=== PATIENT | male | born 1960 | race African-American/Black ===

== ENCOUNTER 2017-06-05 16:12 | Emergency (ER) | payer OTHER ==
[2017-06-05 16:22] VITALS: BP 144/81; PULSE 84; TEMP 98.2; BMI 48.0
--- NOTE | 2017-06-05 16:22 | PDOC ---
Rapid Medical Evaluation Time Seen by Provider: 06/05/17 16:18 Medical Evaluation: Allergies Allergy/AdvReac Type Severity Reaction Status Date / Time No Known Allergies Allergy Verified 06/05/17 16:18 06/05/17 16:18 The patient presents with a chief complaint of: Fall in the bathtub on Monday. "Legs gave out" Legs hurt b/l from knees up.Hx of sleep apnea. Fell asleep in shower? No LOC, did not hit head, no dizziness, or light headedness I have performed a brief in-person evaluation of this patient; Pertinent physical exam findings: TTP knees and quads b/l I have ordered the following: nothing The patient will proceed to the ED for further evaluation.
--- NOTE | 2017-06-05 17:44 | PDOC ---
History of Present Illness - General Chief Complaint: Injury Stated Complaint: FALL/INJURY Time Seen by Provider: 06/05/17 16:18 History Source: Patient Exam Limitations: No Limitations - History of Present Illness Initial Comments: 06/05/17 18:03 MY CHIEF COMPLAINT:"I WANT MY MRI OF MY LEGS" HISTORY OF PRESENT ILLNESS: PT. IS A 57 y/o male with h/o diabetes here today c/ o pain b/l knees, thighs since yesterday after falling in the shower. Pt. initially upon entry to exam room stated "I want an MRI my knees". It was explained to patient that he would not be able to get an MRI of his knees in the emergency room. Patient according to medical records had a prescription from Dr. Quintero to have bilateral leg x-rays. Patient explained that he had gone to out patient registration but was unable to register "because they are idiots, now I had to come here" . Pt. reported falling in the bathtub yesterday unto his knees and now has pain b/l medial knees and anterior thighs. Pt. refused to put on a gown, stating " I will drop my pants once I get to the xray room". Pt. raising his voice when spoken to, pt. stated, "they sent me here now to see a nurse". Veterinary Technician Assistant offered that he could see a MD in the back, pt.did not state he wanted to, "I just want my xrays" in a loud demanding voice. Pt. denies any other injuries, denies hitting his head. 06/05/17 18:08 06/05/17 18:42 Occurred: reports: yesterday Severity: Yes: moderate Lower Extremity Pain Location: bilateral: knee, leg (thighs) Method of Injury: Yes: fell Modifying Factors: improves with: None Lower Ext. Injury Location - Specific Injury Location Legs: bilateral: normal inspection, normal range of motion, bone tenderness ( medial knees ), soft tissue tenderness (b/l thighs ), pain (medial knees b/l ) Knees: bilateral no evidence of injury, bilateral normal range of motion, bilateral normal inspection, bilateral bone tenderness (medial knees ) Extremity Pain Location - Extremity Pain Location Extremity Pain Locations: bilateral: knee (medial knees ) Past History - Past Medical History Allergies/Adverse Reactions: Allergies Allergy/AdvReac Type Severity Reaction Status Date / Time No Known Allergies Allergy Verified 06/05/17 16:18 Home Medications: Ambulatory Orders Cephalexin [Keflex] 500 mg PO QID #30 capsule 02/09/16 Hydrocortisone 0.5% Cream [Hytone 0.5% Cream -] 1 applic TP BID #1 tube Ibuprofen [Motrin -] 600 mg PO QID PRN #30 tablet 02/09/16 Polymyxin B Sulfate/Tmp [Polytrim Opthalmic Solution -] 2 drop OU Q6H 7 Days drops 02/09/16 COPD: No Diabetes: Yes (non compliant) - Immunization History Immunization Up to Date: Yes - Suicide/Smoking/Psychosocial Hx Smoking History: Never smoked Have you smoked in the past 12 months: Yes Number of Cigarettes Smoked Daily: 10 Information on smoking cessation initiated: Yes 'Breaking Loose' booklet given: 06/05/17 Hx Alcohol Use: No Drug/Substance Use Hx: No Substance Use Type: None Hx Substance Use Treatment: No Review of Systems - Review of Systems Able to Perform ROS?: Yes Constitutional: No: Symptoms Reported HEENTM: No: Symptoms Reported Respiratory: No: Symptoms reported Cardiac (ROS): No: Symptoms Reported ABD/GI: No: Symptoms Reported : No: Symptoms Reported Musculoskeletal: Yes: Joint Pain (medial knees b/l ), Muscle Pain (b/l anterior thighs ). No: Joint Swelling Integumentary: No: Symptoms Reported Neurological: No: Symptoms reported *Physical Exam - Vital Signs Last Vital Signs Temp Pulse Resp BP Pulse Ox 98.2 F 84 18 144/81 100 06/05/17 16:19 06/05/17 16:19 06/05/17 16:19 06/05/17 16:19 06/05/17 16:19 - Physical Exam General Appearance: Yes: Appropriately Dressed Vascular Pulses: Dorsalis-Pedis (R): 4+, Doralis-Pedis (L): 4+ Musculoskeletal: positive: Normal Inspection. negative: Vertebral Tenderness Extremity: positive: Normal Capillary Refill, Normal Inspection, Normal Range of Motion (b/l knees, ), Tender (b/l medial knee ), Other (muscle tenderness b/ l anterior thighs ) Integumentary: positive: Normal Color (b/l ) Neurologic: positive: Alert, Normal Response, Motor Strength 5/5 (b/l lower extremities ), Responsive. negative: Respond to painful stimul, Numbness, Sensory Deficit Deep Tendon Reflexes: Knee (L): 3+, Knee (R): 3+ Medical Decision Making - Medical Decision Making 06/05/17 18:49 PT. IS A 57 y/o male with h/o diabetes here today c/o pain b/l knees, thighs since yesterday after falling in the shower. Pt. initially upon entry to exam room stated "I want an MRI my knees". It was explained to patient that he would not be able to get an MRI of his knees in the emergency room. Patient according to medical records had a prescription from Dr. Quintero to have bilateral leg x- rays. Patient explained that he had gone to out patient registration but was unable to register "because they are idiots, now I had to come here" . Pt. reported falling in the bathtub yesterday unto his knees and now has pain b/l medial knees and anterior thighs. Pt. refused to put on a gown, stating " I will drop my pants once I get to the xray room". Pt. raising his voice when spoken to, pt. stated, "they sent me here now to see a nurse". Veterinary Technician Assistant offered that he could see a MD in the back, pt.did not state he wanted to, "I just want my xrays" in a loud demanding voice. Pt. denies any other injuries, denies hitting his head. fall b/l knee pain r/o iliana abnormality b/l thigh pain r/o iliana abnormality PLAN: xray b/l femur DEGENERATIVE ARTHRITIS WITH NO FRACTURE OR ACUTE BONE OR JOINT ABNORMALITIES PER DR. EDWARDS XRAY TIBIA/FIBIA B/L DEGENERATIVE ARTHRITIS WITH NO FRACTURE OR ACUTE BONE OR JOINT ABNORMALITIES PER DR. EDWARDS xray b/l knees DEGENERATIVE ARTHRITIS WITH NO FRACTURE OR ACUTE BONE OR JOINT ABNORMALITIES PER DR. EDWARDS ORTHO CONSULT 06/05/17 20:14 06/05/17 20:16 *DC/Admit/Observation/Transfer Diagnosis at time of Disposition: Pain in both thighs Fall Qualifiers: Encounter type: initial encounter Qualified Code(s): W19.XXXA - Unspecified fall, initial encounter Knee pain, bilateral Qualifiers: Chronicity: unspecified Qualified Code(s): M25.561 - Pain in right knee - Discharge Dispostion Disposition: ELOPED - Referrals - Patient Instructions Additional Instructions: FOLLOW UP WITH ORTHOPEDIST SOON POSSIBLE FOR FURTHER RETURN TO EMERGENCY ROOM IF SYMPTOMS WORSEN OR NEW SYMPTOMS WORSEN TAKE IBUPROFEN OR ALEVE OR ADVIL NEEDED FOR PAIN AVOID ANY STRENUOUS ACTIVITIES OR EXERCISE - Post Discharge Activity
== END 2017-06-05 21:25 | disposition left against medical advice (07) ==
LOC: JERFT 16:12
DX: M79.652 Pain in left thigh (principal); M79.651 Pain in right thigh; M25.561 Pain in right knee; F17.210 Nicotine dependence, cigarettes, uncomplicated
CPT/HCPCS: 73552-TC-LT; 73552-TC-RT; 73562-TC-LT; 73562-TC-RT; 73590-TC-LT; 73590-TC-RT; 99281-25

== ENCOUNTER 2018-08-12 20:29 | Observation (INO) | payer OTHER ==
[2018-08-12 20:36] VITALS: BMI 48.0
--- NOTE | 2018-08-12 20:58 | PDOC ---
History of Present Illness - General Chief Complaint: Chest Pain Stated Complaint: CHEST PAIN - History of Present Illness Initial Comments: 08/12/18 20:55 58 yo male with NIDDM presented earlier today with complaint of chest pain for 3 days which is present at rest and on exertion. Pt was placed into tele obs for ACS rule out with a heart score of 4-5 and planned for cardiology evaluation in the AM. Pt left the premisis AMA however returned stating that his daughter had convinced him to stay. Past History - Past Medical History Allergies/Adverse Reactions: Allergies Allergy/AdvReac Type Severity Reaction Status Date / Time almond Allergy Severe ANAPHYLAXIS,THROAT Verified 08/12/18 20:36 CLOSING walnut Allergy Severe ANAPHYLAXIS, Verified 08/12/18 20:36 THROAT CLOSING certain nuts Allergy Uncoded 08/12/18 20:36 COPD: No Diabetes: Yes - Immunization History Immunization Up to Date: Yes - Suicide/Smoking/Psychosocial Hx Smoking History: Never smoked Have you smoked in the past 12 months: No Number of Cigarettes Smoked Daily: 10 Information on smoking cessation initiated: No 'Breaking Loose' booklet given: 06/05/17 Hx Alcohol Use: No Drug/Substance Use Hx: No Substance Use Type: None Hx Substance Use Treatment: No Review of Systems - Review of Systems Constitutional: No: Chills, Fever HEENTM: No: Blurred Vision Respiratory: Yes: SOB with Exertion. No: Cough Cardiac (ROS): Yes: Chest Pain. No: Irregular Heart Rate, Syncope ABD/GI: No: Abdominal Distended, Constipated, Diarrhea, Nausea : No: Dysuria, Discharge Musculoskeletal: Yes: Back Pain *Physical Exam - Vital Signs Last Vital Signs Temp Pulse Resp BP Pulse Ox 98.0 F 84 16 141/91 100 08/12/18 20:35 08/12/18 20:35 08/12/18 20:35 08/12/18 20:35 08/12/18 20:35 - Physical Exam Comments: 08/12/18 20:59 GEN: Obese male in no acute distress HEENT: PERRL, no pharyngeal erythema or exudate NECK: supple, no lymphadenopathy HEART: RRR, no murmurs or rubs LUNGS: CTA b/l, no wheezes or rhales ABDOMEN: Soft, nontender, obese, normoactive bowel sounds EXTREMITIES: nontender to palpation, no calf tenderness on palpation Moderate Sedation - Procedure Monitoring Vital Signs: Procedure Monitoring Vital Signs Temperature 98.0 F 08/12/18 20:35 Pulse Rate 84 08/12/18 20:35 Respiratory Rate 16 08/12/18 20:35 Blood Pressure 141/91 08/12/18 20:35 O2 Sat by Pulse Oximetry (%) 100 08/12/18 20:35 Medical Decision Making - Medical Decision Making 08/12/18 20:59 repeat troponin Negative. Still feel pt needs cardiac monitoring overnight and cardiology evaluation in the AM. Will microblog hospitalist who covers for Dr. Orta at this time and discuss for tele obs similar to earlier. *DC/Admit/Observation/Transfer Diagnosis at time of Disposition: Chest pain at rest - Discharge Dispostion Condition at time of disposition: Stable Decision to Admit order: Yes - Referrals - Patient Instructions - Post Discharge Activity
--- NOTE | 2018-08-12 21:09 | PDOC ---
*Physical Exam - Vital Signs Last Vital Signs Temp Pulse Resp BP Pulse Ox 98.0 F 84 16 141/91 100 08/12/18 20:35 08/12/18 20:35 08/12/18 20:35 08/12/18 20:35 08/12/18 20:35 Medical Decision Making - Medical Decision Making 08/12/18 21:08 Patient was admitted to the hospital earlier today for chest pain rule out then decided to leave AMA moments after leaving AMA return to the hospital but patient had been department from the system no new complaints he simply is changed his mind and has decided to stay. We will proceed with his admission to the hospital *DC/Admit/Observation/Transfer Diagnosis at time of Disposition: Chest pain at rest - Discharge Dispostion Condition at time of disposition: Stable Decision to Admit order: Yes - Referrals - Patient Instructions - Post Discharge Activity
--- NOTE | 2018-08-12 21:24 | HP ---
Admitting History and Physical - Primary Care Physician PCP: George Arcos - Admission Chief Complaint: Chest Pain History of Present Illness: This is a 58 y/o man with a past medical history of Diabetes (non compliant). Who presents again to the ED for chest pain. Patient was seen and admitted this afternoon for chest pain, but AMA. He returned after speaking with his daughter. Patient reports having mid sternal CP which radiated to his back, IBARRA x 2 days. Patient denies diaphoresis, palpitations. Patient denies fever, chills , cough, N/V/D, constipation, dysuria. ER course was notable for: (1) Troponin I 0.03 (2) EKG- NSR 69bpm cannot r/o anterior infarct age undetermined (3) Chest Xray- cardiomegaly, no acute chest pathology History Source: Patient Limitations to Obtaining History: No Limitations - Past Medical History Pulmonary: Yes: Asthma, Sleep Apnea Endocrine: Yes: Diabetes Mellitus - Smoking History Smoking history: Current every day smoker Have you smoked in the past 12 months: Yes Aproximately how many cigarettes per day: 10 (1Pack/1.5 days) - Alcohol/Substance Use Hx Alcohol Use: Yes Number of Drinks Daily: 1 (Beer- Occasional) History of Substance Use: reports: None - Social History Usual Living Arrangement: Yes: Alone ADL: Independent Occupation: Disabled- not working History of Recent Travel: No Home Medications - Allergies Allergies/Adverse Reactions: Allergies Allergy/AdvReac Type Severity Reaction Status Date / Time almond Allergy Severe ANAPHYLAXIS,THROAT Verified 08/12/18 20:36 CLOSING walnut Allergy Severe ANAPHYLAXIS, Verified 08/12/18 20:36 THROAT CLOSING certain nuts Allergy Uncoded 08/12/18 20:36 Family Disease History - Family Disease History Family Disease History: Other: Father (), Mother (), Brother ( ESRD) Review of Systems - Review of Systems Constitutional: reports: No Symptoms Eyes: reports: No Symptoms HENT: reports: No Symptoms Neck: reports: No Symptoms Cardiovascular: reports: Chest Pain Respiratory: reports: SOB, SOB on Exertion Gastrointestinal: reports: No Symptoms Genitourinary: reports: No Symptoms Breasts: reports: No Symptoms Reported Musculoskeletal: reports: Back Pain Integumentary: reports: No Symptoms Neurological: reports: No Symptoms Endocrine: reports: No Symptoms Hematology/Lymphatic: reports: No Symptoms Psychiatric: reports: No Symptoms Physical Examination Vital Signs: Vital Signs Temperature 98.0 F 08/12/18 20:35 Pulse Rate 84 08/12/18 20:35 Respiratory Rate 16 08/12/18 20:35 Blood Pressure 141/91 08/12/18 20:35 O2 Sat by Pulse Oximetry (%) 100 08/12/18 20:35 Constitutional: Yes: Well Nourished, No Distress, Calm Eyes: Yes: WNL, Conjunctiva Clear, EOM Intact, PERRL HENT: Yes: WNL, Atraumatic, Normocephalic Neck: Yes: WNL, Supple, Trachea Midline Cardiovascular: Yes: WNL, Regular Rate and Rhythm, S1, S2 Respiratory: Yes: WNL, Regular, CTA Bilaterally Gastrointestinal: Yes: WNL, Normal Bowel Sounds, Soft, Abdomen, Obese ...Rectal Exam: Yes: Deferred Renal/: Yes: WNL Breast(s): Yes: WNL Musculoskeletal: Yes: WNL Extremities: Yes: WNL Edema: No Peripheral Pulses WNL: Yes Neurological: Yes: WNL, Alert, Oriented, Cran Nerves II-XII Intact ...Motor Strength: WNL Psychiatric: Yes: WNL, Alert, Oriented Labs: Laboratory Results - last 24 hr 08/12/18 22:03 POC Glucometer 207 Current Medications Generic Name Dose Route Start Last Admin Trade Name Freq PRN Reason Stop Dose Admin Albuterol Sulfate 2 puff 08/12/18 23:08 Ventolin Hfa Inhaler - IH Q6H PRN SHORT OF BREATH/WHEEZING Aspirin 81 mg 08/13/18 10:00 Asa - PO DAILY [facility] Insulin Aspart 1 vial 08/12/18 22:00 08/12/18 22:05 Novolog Vial Sliding Scale - SQ Not Given ACHS [facility] Protocol Intake & Output 08/09/18 08/10/18 08/11/18 08/12/18 23:59 23:59 23:59 23:59 Weight 127.006 kg Imaging - Results Chest X-ray: Report Reviewed, Image Reviewed EKG: Image Reviewed Problem List - Problems (1) Chest pain at rest Assessment/Plan: r/o ACS HEART Score 5 Continue cardiac technician Appreciate Cardiology consult Serial Enzymes Asa Echo in am HgbA1c, Lipid Panel, CBC, BMP in am Code(s): R07.9 - CHEST PAIN, UNSPECIFIED (2) Diabetes mellitus Assessment/Plan: not well controlled Likely secondary to non-compliance BGMs ISS Appreciate Cardiology consult Monitor renal function HgbA1c in am RD consult Code(s): E11.9 - TYPE 2 DIABETES MELLITUS WITHOUT COMPLICATIONS (3) Asthma Assessment/Plan: stable No acute flare Albuterol MDI prn Peak flow f/u with Pulmonology outpatient Code(s): J45.909 - UNSPECIFIED ASTHMA, UNCOMPLICATED (4) Sleep apnea in adult Assessment/Plan: Non-complaint with CPAP use Counseled patient on benefits and dangers of not using CPAP machine, patient is not amendable O2 Code(s): G47.30 - SLEEP APNEA, UNSPECIFIED (5) Tobacco dependence due to cigarettes Assessment/Plan: Patient counseled on smoking cessation, he is not amendable Nicoderm patch offered, patient declined Code(s): F17.210 - NICOTINE DEPENDENCE, CIGARETTES, UNCOMPLICATED Assessment/Plan This is a 58 y/o man PMHx of Diabetes. Placed on Tele Observation for Chest Pain r/o ACS for further evaluation of their emergent medical condition. Plan: See Problem List FEN PO fluids as tolerated Replete lytes prn Low Na Diabetic Diet DVT ppx OOB SCDs Dispo: Observation Visit type - Emergency Visit Emergency Visit: Yes ED Registration Date: 08/12/18 Care time: The patient presented to the Emergency Department on the above date and was hospitalized for further evaluation of their emergent condition. - New Patient This patient is new to me today: Yes Date on this admission: 08/12/18 - Critical Care Critical Care patient: No
[2018-08-12] MEDS: INSULIN SLIDING SCALE (NOVOLOG) 1 VIAL SQ SCH (22:05)
[2018-08-12] MEDS ORDERED: ALBUTEROL SO4 8 GM HFA INHALER IH PRN (23:08)
[2018-08-13 07:22] LABS: BASO % 0.7 % (0-2.0); EOS % 3.5 % (0-4.5); HEMATOCRIT 43.9 % (35.4-49); HEMOGLOBIN 15.1 GM/dL (11.7-16.9); LYMPH % 39.2 % (8-40); MCH 29.2 pg (25.7-33.7); MCHC 34.4 g/dl (32.0-35.9); MEAN CELL VOLUME 85.1 fl (80-96); MEAN PLT VOLUME 8.9 fl (7.5-11.1); MONO % 9.1 % (3.8-10.2); NEUT % 47.5 % (42.8-82.8); PLATELET COUNT 188 K/MM3 (134-434); RBC 5.16 M/mm3 (4.00-5.60); RDW 15.7 % (11.9-15.9); WHITE BLOOD COUNT 5.3 K/mm3 (4.0-10.0)
[2018-08-13] MEDS: INSULIN SLIDING SCALE (NOVOLOG) 1 VIAL SQ SCH ×3 (07:40→14:58)
[2018-08-13] MEDS ORDERED: ASPIRIN 81 MG CHEWABLE TABLETS ONE (09:58)
[2018-08-13] MEDS ORDERED: ASPIRIN 81 MG CHEWABLE TABLETS PO SCH (10:00)
[2018-08-13 13:32] LABS: ANION GAP 6 MMOL/L (8-16); BLOOD UREA NITROGEN 14 mg/dL (7-18); CALCIUM 8.5 mg/dL (8.5-10.1); CHLORIDE 106 mmol/L (98-107); CHOLESTEROL 190 mg/dL (50-200); CO2 29 mmol/L (21-32); CREATININE 0.9 mg/dL (0.55-1.3); GLUCOSE,RANDOM 146 mg/dL (74-106); HDL CHOLESTEROL 46 mg/dL (40-60); N-TERMINAL BNP 21.6 pg/ml (5-125); SODIUM 141 mmol/L (136-145); TRIGLYCERIDES 201 mg/dL (0-150)
--- NOTE | 2018-08-13 16:28 | PN ---
Progress Note, Physician Chief Complaint: patient seen earlier today came in for chest pain awaiting echo and cardiology to see patient really wants to go home - Current Medication List Current Medications: Active Medications Albuterol Sulfate (Ventolin Hfa Inhaler -) 2 puff IH Q6H PRN PRN Reason: SHORT OF BREATH/WHEEZING Aspirin (Asa -) 81 mg PO DAILY RONDA Insulin Aspart (Novolog Vial Sliding Scale -) 1 vial SQ ACHS RONDA; Protocol Last Admin: 08/13/18 07:40 Dose: Not Given - Objective Vital Signs: Vital Signs Temperature 98.0 F 08/12/18 20:35 Pulse Rate 63 08/13/18 06:50 Respiratory Rate 18 08/13/18 06:50 Blood Pressure 127/93 08/13/18 06:50 O2 Sat by Pulse Oximetry (%) 96 08/13/18 06:50 Constitutional: Yes: Calm Cardiovascular: Yes: Regular Rate and Rhythm, S1, S2 Respiratory: Yes: CTA Bilaterally Gastrointestinal: Yes: Normal Bowel Sounds, Soft Edema: No Neurological: Yes: Alert, Oriented Labs: CBC, BMP 08/13/18 06:14 08/13/18 06:14 Problem List - Problems (1) Chest pain at rest Assessment/Plan: ce 1 sets negative echo normal aspirin lipitor given lipid panel noted Code(s): R07.9 - CHEST PAIN, UNSPECIFIED (2) Diabetes mellitus Assessment/Plan: metfromin and januvia Code(s): E11.9 - TYPE 2 DIABETES MELLITUS WITHOUT COMPLICATIONS Qualifiers: Diabetes mellitus type: type 2
--- NOTE | 2018-08-13 16:35 | ECHO ---
Name: LAURIE DOUGLAS Exam:Adult Echocardiogram Study Date: 08/13/2018 04:02 PM Age: 58 yrs Reason For Study: WALL MOTION ABNORMALITIES Height: 64 in Weight: 285 lb BSA: 2.3 m2 MMode/2D Measurements & Calculations IVSd: 0.79 cm Ao root diam: 3.3 cm LVIDd: 4.8 cm LA dimension: 3.8 cm LVIDs: 3.1 cm LVPWd: 0.76 cm EDV(Teich): 109.3 ml ESV(Teich): 36.7 ml Doppler Measurements & Calculations MV E max manjit: 92.1 cm/sec Ao V2 max: 169.7 cm/sec MV A max manjit: 64.2 cm/sec Ao max P.5 mmHg MV E/A: 1.4 MV dec time: 0.23 sec LV V1 max P.4 mmHg Med Peak E' Manjit: 10.7 cm/sec LV V1 max: 91.5 cm/sec Med E/e': 8.6 Lat Peak E' Manjit: 13.8 cm/sec Lat E/e': 6.7 Procedure A complete two-dimensional transthoracic echocardiogram was performed (2D, M-mode, Doppler and color flow Doppler). Left Ventricle The left ventricle is normal in size. Left ventricular systolic function is normal. Ejection Fraction = 60- 65%. No regional wall motion abnormalities noted. Right Ventricle The right ventricle is normal size. The right ventricular systolic function is normal. Atria The left atrial size is normal. Right atrial size is normal. Mitral Valve There is mild mitral annular calcification. There is no mitral regurgitation noted. Tricuspid Valve The tricuspid valve is normal in structure and function. No tricuspid regurgitation. Aortic Valve The aortic valve is normal in structure and function. No aortic regurgitation is present. Pulmonic Valve The pulmonic valve is not well visualized. Great Vessels The aortic root is normal size. Pericardium/Pleura There is no pericardial effusion. Interpretation Summary The left ventricle is normal in size. Left ventricular systolic function is normal. No regional wall motion abnormalities noted. Ejection Fraction = 60-65%. The right ventricular systolic function is normal. The left atrial size is normal. Right atrial size is normal. There is mild mitral annular calcification. No significant valvular regurgitations There is no pericardial effusion. Previous study is not available for comparison Guillaume Quiroz MD 08/13/2018 04:34 PM
[2018-08-13 17:53] VITALS: BP 128/86; PULSE 66; TEMP 98.3
[2018-08-13] MEDS ORDERED: ATORVASTATIN CA 10 MG TABLET (FP) PO SCH (22:00)
== END 2018-08-13 17:07 | disposition home or self-care (01) ==
LOC: JER 20:29 → JERBED 21:27
PROVIDERS: ADMIT Family Medicine; ATTEND Family Medicine
DX: R07.89 Other chest pain (principal); E11.9 Type 2 diabetes mellitus without complications; J45.909 Unspecified asthma, uncomplicated; G47.30 Sleep apnea, unspecified; F17.210 Nicotine dependence, cigarettes, uncomplicated; Z79.4 Long term (current) use of insulin; Z79.82 Long term (current) use of aspirin
CPT/HCPCS: 36415; 80048; 80061; 82550; 82962; 83036; 83721; 83735; 83880; 84484; 85025; 93306-TC; 99285-25; G0378

== ENCOUNTER 2019-04-22 06:08 | Day surgery (SDC) | payer OTHER ==
[2019-04-08 11:08] VITALS: BMI 46.5
[2019-04-22] MEDS ORDERED: LIDOCAINE HCL 1%, 10 MG/ML (20ML VIAL) ONE (07:18)
[2019-04-22] MEDS ORDERED: BUPIVACAINE HCL/PF 2.5 MG/ML - 30 ML VIAL IJ ONE (07:18)
[2019-04-22] MEDS ORDERED: LIDOCAINE 1%/EPI 1:100000 (20 ML MULTI DOSE VIAL) ONE (07:19)
[2019-04-22] MEDS ORDERED: SUCCINYLCHOLINE CHLORIDE 200 MG/10 ML SYRINGE ONE (07:33)
[2019-04-22] MEDS ORDERED: PROPOFOL 20 ML ONE (07:33)
[2019-04-22] MEDS ORDERED: MIDAZOLAM HCL 2 MG/2 ML SINGLE DOSE VIAL ONE (07:33)
[2019-04-22] MEDS ORDERED: LIDOCAINE HCL 2% (20ML MULTI-DOSE VIAL) NR ONE (08:08)
[2019-04-22] MEDS ORDERED: ceFAZolin SODIUM 1 GM VIAL ONE (08:27)
[2019-04-22] MEDS ORDERED: BACITRACIN 15 GM TUBE TOPICAL OINTMENT ONE (09:01)
[2019-04-22] MEDS ORDERED: DEXAMETHASONE SOD PHOSPHATE 4 MG/1 ML VIAL ONE (09:07)
[2019-04-22] MEDS ORDERED: ONDANSETRON 4 MG/2 ML VIAL ONE (09:07)
[2019-04-22] MEDS ORDERED: KETOROLAC TROMETHAMINE 30 MG/1 ML VIAL ONE (09:11)
[2019-04-22] MEDS ORDERED: ONDANSETRON 4 MG/2 ML VIAL IVPUSH PRN (09:38)
[2019-04-22] MEDS ORDERED: ACETAMINOPHEN 500 MG TABLET (FP) PO PRN (09:38)
[2019-04-22] MEDS ORDERED: oxyCODONE HCL 5 MG TABLET PO PRN ×2 (09:57)
[2019-04-22] MEDS ORDERED: ONDANSETRON 4 MG/2 ML VIAL IVPB PRN (09:57)
[2019-04-22] MEDS ORDERED: LACTATED RINGERS SOLUTION 1,000 ML IV SCH (10:00)
[2019-04-22] MEDS ORDERED: FLUTICASONE PROP 0.05% NS SCH (10:00)
--- NOTE | 2019-04-22 10:01 | OP ---
Operative Note - Note: Operative Date: 04/22/19 Pre-Operative Diagnosis: left wrist dorsal ganglion cyst Operation: excision of left wrist dorsal ganglion cyst Post-Operative Diagnosis: Same as Pre-op Anesthesia: Local, MAC Operative Report Dictated: Yes
[2019-04-22 10:09] VITALS: TEMP 97.5
[2019-04-22 11:04] VITALS: BP 125/80; PULSE 62
--- NOTE | 2019-04-22 11:09 | OP ---
DATE OF OPERATION: 04/22/2019 PROCEDURE: Left dorsal wrist ganglion cyst excision. PREOPERATIVE DIAGNOSIS: Left wrist dorsal ganglion cyst. POSTOPERATIVE DIAGNOSIS: Left wrist dorsal ganglion cyst. ATTENDING SURGEON: Yo Mitchell MD FRAME ASSEMBLER: None. ANESTHESIA: Monitored sedation with a total of 15 mL 2% lidocaine plain to the operative site, and at the end of the procedure, an additional 10 mL of 0.25% Marcaine plain was given to the operative site. DESCRIPTION OF PROCEDURE: The patient is marked in the holding area. All risks, benefits, alternatives to the procedure are discussed. He understands, agrees to proceed. That area is marked. He was aware of the incision, resulting scar. We discussed risks including, but not limited to, bleeding, infection, recurrence, the scar tissue, loss of motion, and pain. He understands, agrees to proceed. Patient was brought to the operating room. Placed in a supine position. Sequential compression stockings were applied. The patient was given 3 g of Ancef preoperatively. The hand is then prepped and draped in a standard surgical fashion. Time-out is called. Patient, procedure, site, sides are verified. At this point, the 2% lidocaine plain is injected. The hand is elevated, is marked, exsanguinated. Tourniquet is then elevated to 225 mmHg. The total tourniquet time for this case is 28 minutes. Under tourniquet control, a longitudinal vertical incision is made over the palpable mass lesion. The dissection is then carried down to the lesion using a spreading technique. The lesion is then dissected from the surrounding connective tissue through the extensor retinaculum. The extensor tendons are identified and are protected from the dissection. The cyst is dissected to a stalk that continues into the dorsal wrist joint. At its base where it enters into the joint, it is transected. The cyst is sent for pathology. The wound is copiously irrigated with normal saline. The base of the lesion as it enters into the dorsal wrist capsule is repaired with 2 [id number] 5-0 Vicryl sutures. The extensor retinaculum is then repaired with a series of interrupted [id number] 4-0 Vicryl sutures in an anatomical configuration. The wound is then irrigated once again. Tourniquet is released. Hemostasis is achieved. The hand is elevated for 5 minutes with direct pressure, irrigated once again. The closure is then performed with a single, buried, deep dermal 5-0 Vicryl suture followed by a series of interrupted, vertically mattressed 5-0 nylon sutures. It should be noted that the wound is closed with adequate space for egress should it be necessary. The wound is dressed with bacitracin, Xeroform, 4 x 4 gauze, Webril, and a volar 4-inch Ortho-Glass splint with 3-inch Shawn wraps. Fingertips are pink and viable. Patient is able to demonstrate full range of motion of all fingers. He is transferred to recovery without complication. YO MITCHELL M.D. [id number]
--- NOTE | 2019-04-24 16:01 | PATH ---
Surgical Pathology Report Patient Name: LAURIE DOUGLAS Med. Rec. #: [id number] /Age/Gender: 1960 (Age: 59) / M Account: [id number] Location: [facility] Taken: 04/22/2019 Received: 04/22/2019 Reported: 04/24/2019 Physicians: Deshawn Pealez Specimen(s) Received GANGLION CYST LEFT WRIST Clinical History Ganglion cyst left wrist Final Diagnosis WRIST, LEFT, GANGLION CYST, EXCISION: GANGLION CYST. Electronically Signed Margret Crump M.D. Gross Description Received in formalin labeled "ganglion cyst left wrist," is a 2.5 x 1.5 x 0.8 cm gauthier-minaya cystic structure with a focal defect. The cyst lumen contains gauthier mucinous material. Coal Handling Supervisor sections are submitted in one cassette. /04/23/2019 saudi/04/23/2019
== END 2019-04-22 11:04 | disposition home or self-care (01) ==
LOC: FASU 06:08
PROVIDERS: ATTEND Plastic Surgery
PROC: 0LB60ZZ Excision of Left Lower Arm and Wrist Tendon, Open Approach (ICD-10-PCS; principal; 2019-04-22 08:40)
DX: M67.432 Ganglion, left wrist (principal)
CPT/HCPCS: 82962; 88304-TC; 94760

== ENCOUNTER 2019-07-13 11:59 | Emergency (ER) | payer OTHER ==
[2019-07-13 12:19] VITALS: BP 154/99; PULSE 77; TEMP 98; BMI 48.0
[2019-07-13] MEDS ORDERED: ACETAMINOPHEN WITH CODEINE 300MG/30MG TABLET PO ONE (12:39)
--- NOTE | 2019-07-13 12:41 | PDOC ---
History of Present Illness - General Chief Complaint: Cold Symptoms Stated Complaint: COLD SYMPTOMS/COUGH Time Seen by Provider: 07/13/19 12:20 History Source: Patient, Old Records Exam Limitations: No Limitations - History of Present Illness Initial Comments: 07/13/19 12:41 HISTORY OF PRESENT ILLNESS: 59-year-old male presents emergency department for evaluation of cough for 2 weeks. Patient denies medical history per chart review reveals patient has history of [id number] diabetes and hypertension. Patient reports he takes his metformin intermittently when he "feels my sugar is high." Patient denies fevers, chills, body aches, chest pain , shortness of breath. No recent travel or sick contacts. PAST MEDICAL HISTORY: NIDDM, HTN SURGICAL HISTORY: Denies ALLERGIES: nuts REVIEW OF SYSTEMS General/Constitutional: Denies fever or chills. Denies weakness, weight change. HEENT: Denies change in vision. Denies ear pain or discharge. Denies sore throat. Cardiovascular: Denies chest pain or shortness of breath. Respiratory: See HPI Gastrointestinal: Denies nausea, vomiting, diarrhea or constipation. Denies rectal bleeding. Genitourinary: Denies dysuria, frequency, or change in urination. Musculoskeletal: Denies joint or muscle swelling or pain. Denies neck or back pain. Skin and breasts: Denies rash or easy bruising. Neurologic: Denies headache, vertigo, loss of consciousness, or loss of sensation. Psychiatric: Denies depression or anxiety. Endocrine: Denies increased thirst. Denies abnormal weight change. Hematologic/Lymphatic: Denies anemia, easy bleeding, or history of blood clots. Allergic/Immunologic: Denies hives or skin allergy. Denies latex allergy. PHYSICAL EXAM General Appearance: Well-appearing, appropriately dressed. No apparent distress , no intoxication. HEENT: EOMI, PERRLA, normal ENT inspection, normal voice, TMs normal, pharynx normal. No conjunctival pallor. No photophobia, scleral icterus. Neck: Supple. Trachea midline. No tenderness, rigidity, carotid bruit, stridor , lymphadenopathy, or thyromegaly. Respiratory/Chest: Lungs CTAB. No shortness of breath, chest tenderness, respiratory distress, accessory muscle use. Scattered inspiratory wheezes present. Speaking full sentences. Cardiovascular: RRR. S1, S2. No JVD, murmur, bradycardia, tachycardia. Vascular Pulses: Dorsalis-Pedis (R): 2+, Dorsalis-Pedis (L): 2+ Gastrointestinal/Abdominal: Normal bowel sounds. Abdomen soft, non-distended. No tenderness or rebound tenderness. No organomegaly, pulsatile mass, guarding, hernia, hepatomegaly, splenomegaly. Lymphatic: No adenopathy, tenderness. Musculoskeletal/Extremities: Normal inspection. FROM of all extremities, normal capillary refill. Pelvis Stable. No CVA tenderness. No tenderness to extremities, pedal edema, swelling, erythema or deformity. Integumentary: Appropriate color, dry, warm. No cyanosis, erythema, jaundice or rash Neurologic: supervising librarian II-XII intact. Fully oriented, alert. Appropriate mood/affect. Motor strength 5/5. No appreciable EOM palsy, facial droop or sensory deficit. 07/13/19 13:26 Past History - Past Medical History Allergies/Adverse Reactions: Allergies Allergy/AdvReac Type Severity Reaction Status Date / Time almond Allergy Severe ANAPHYLAXIS,THROAT Verified 07/13/19 12:18 CLOSING walnut Allergy Severe ANAPHYLAXIS, Verified 07/13/19 12:18 THROAT CLOSING certain nuts Allergy Uncoded 07/13/19 12:18 Home Medications: Ambulatory Orders Benzonatate [Tessalon Pearls -] 200 mg PO TID #42 cap 07/13/19 COPD: No Diabetes: Yes (STOPPED ALL PO DM MEDICATIONS ON OWN) - Immunization History Immunization Up to Date: Yes - Psycho Social/Smoking Cessation Hx Smoking History: Never smoked Have you smoked in the past 12 months: Yes Number of Cigarettes Smoked Daily: 10 'Breaking Loose' booklet given: 06/05/17 Hx Alcohol Use: Yes Drug/Substance Use Hx: No Substance Use Type: Alcohol Hx Substance Use Treatment: No *Physical Exam - Vital Signs Last Vital Signs Temp Pulse Resp BP Pulse Ox 98 F 77 18 154/99 100 07/13/19 12:14 07/13/19 12:14 07/13/19 12:14 07/13/19 12:14 07/13/19 12:14 ED Treatment Course - RADIOLOGY Radiology Studies Ordered: Category Date Time Status CHEST PA & LAT [RAD] Stat Radiology 07/13/19 12:39 Ordered Medical Decision Making - Medical Decision Making 07/13/19 12:40 A/P: 59-year-old male with cough for 2 weeks Lungs with scattered inspiratory wheezes in all [place]. Speaking full sentences Moist productive cough Given patient is a borderline diabetic intermittently takes metformin will get a chest x-ray to rule out pneumonia Tylenol #3 1 tablet now Patient offered nebulizer treatments for wheezing but has refused stating I can take those at home. Reassess 07/13/19 13:12 Chest x-ray as read by Dr. Silva: Prominent soft tissues. Large heart. Clear lungs. No acute chest pathology. No change of an adverse nature since . Given normal chest x-ray I will discharge patient home with prescription for Tessalon Perles and have him follow-up with his primary doctor. I discussed the physical exam findings, ancillary test results and final diagnoses with the patient. I answered all of the patient's questions. The patient was satisfied with the care received and felt comfortable with the discharge plan and treatment plan. The patient will call their primary care physician within 24 hours to arrange follow-up and will return to the Emergency Department with any new, persistent or worsening symptoms. Discharge - Discharge Information Problems reviewed: Yes Clinical Impression/Diagnosis: Cough Condition: Stable Disposition: HOME - Admission No - Additional Discharge Information Prescriptions: Benzonatate [Tessalon Pearls -] 200 mg PO TID #42 cap - Follow up/Referral Referrals: Georeg Arcos MD [Primary Care Provider] - - Patient Discharge Instructions Additional Instructions: Rest, drink lots of fluids: Teas, water, soups, Pedialyte Steamy showers/seem to face break up mucus Avoid contact with others until fevers and cough resolved Lots of handwashing and good hygiene Continue [id number]-[id number] medications for symptomatic relief Tylenol or Motrin for fever and pain Tessalon Perles as prescribed Followup with private physician in one to 2 days as needed Return to emergency department for worsened symptoms, fevers, dehydration - Post Discharge Activity
[2019-07-13] MEDS ORDERED: ACETAMINOPHEN WITH CODEINE 300MG/30MG TABLET ONE (12:43)
[2019-07-13] MEDS ORDERED: guaiFENesin/D-METHORPHAN HB 10 ML UNIT-DOSE CUPS PO ONE (12:44)
[2019-07-13] MEDS ORDERED: guaiFENesin/D-METHORPHAN HB 10 ML UNIT-DOSE CUPS ONE (12:45)
== END 2019-07-13 13:24 | disposition home or self-care (01) ==
LOC: JERFT 11:59
DX: R05 Cough (principal); I10 Essential (primary) hypertension; E11.9 Type 2 diabetes mellitus without complications; Z79.84 Long term (current) use of oral hypoglycemic drugs; Z91.14 Patient's other noncompliance with medication regimen
CPT/HCPCS: 71046-TC-FY; 99281-25

== ENCOUNTER 2020-07-14 23:20 | Emergency (ER) | payer OTHER ==
[2020-07-14 23:30] VITALS: BP 139/83; PULSE 93; TEMP 97.9; BMI 47.5
[2020-07-15 00:46] LABS: BASO % 1.2 % (0-2.0); EOS % 2.4 % (0-4.5); HEMATOCRIT 41.9 % (35.4-49); HEMOGLOBIN 13.8 GM/dL (11.7-16.9); LYMPH % 34.1 % (8-40); MCH 27.8 pg (25.7-33.7); MEAN CELL VOLUME 84.3 fl (80-96); MEAN PLT VOLUME 8.8 fl (7.5-11.1); MONO % 9.8 % (3.8-10.2); NEUT % 52.5 % (42.8-82.8); PLATELET COUNT 205 K/MM3 (134-434); RBC 4.97 M/mm3 (4.00-5.60); WHITE BLOOD COUNT 6.9 K/mm3 (4.0-10.0)
[2020-07-15 01:14] LABS: CHLORIDE 104 mmol/L (98-107); SODIUM 137 mmol/L (136-145)
[2020-07-15 01:17] LABS: ALBUMIN 3.7 g/dl (3.4-5.0); ANION GAP 5 MMOL/L (8-16); BLOOD UREA NITROGEN 16.9 mg/dL (7-18); CALCIUM 8.9 mg/dL (8.5-10.1); CO2 28 mmol/L (21-32); GLUCOSE,RANDOM 233 mg/dL (74-106); MAGNESIUM 1.6 mg/dL (1.8-2.4)
[2020-07-15 01:20] LABS: CREATININE 1.1 mg/dL (0.55-1.3); SGOT/AST 15 U/L (15-37); SGPT/ALT 39 U/L (13-61)
[2020-07-15 01:22] LABS: BILIRUBIN,TOTAL 0.3 mg/dL (0.2-1); TOT PROT 7.1 g/dl (6.4-8.2)
[2020-07-15 01:23] LABS: ALK PHOS 84 U/L (45-117)
[2020-07-15 01:25] LABS: N-TERMINAL BNP 21.2 pg/ml (5-125)
[2020-07-15 01:37] LABS: INR 1.16 (0.83-1.09)
== END 2020-07-15 02:30 | disposition home or self-care (01) ==
LOC: JER 23:20
DX: R07.9 Chest pain, unspecified (principal); M79.604 Pain in right leg; L03.311 Cellulitis of abdominal wall
CPT/HCPCS: 36415; 71046-TC-FY; 80053; 82550; 83735; 83880; 84484; 85025; 85610; 85730; 93005; 93010; 93970-TC; 99285-25

== ENCOUNTER 2020-11-28 13:01 | Emergency (ER) | payer OTHER ==
[2020-11-28 13:18] VITALS: BP 133/84; PULSE 98; TEMP 98.1; BMI 46.5
[2020-11-28] MEDS ORDERED: PANTOPRAZOLE SODIUM 40 MG VIAL IVPUSH ONE (13:35)
[2020-11-28] MEDS ORDERED: ONDANSETRON 4 MG/2 ML VIAL IVPUSH ONE (13:35)
[2020-11-28] MEDS ORDERED: MAG HYDROX/AL HYDROX/SIMETH 30 ML UNIT-DOSE CUP PO ONE (13:36)
[2020-11-28] MEDS ORDERED: MAG HYDROX/AL HYDROX/SIMETH 30 ML UNIT-DOSE CUP ONE (13:43)
[2020-11-28] MEDS ORDERED: KETOROLAC TROMETHAMINE 60 MG/2 ML VIAL ONE (13:43)
[2020-11-28] MEDS ORDERED: PANTOPRAZOLE SODIUM 40 MG VIAL ONE (13:44)
[2020-11-28 14:41] LABS: BASO % 0.8 % (0-2.0); EOS % 0.9 % (0-4.5); HEMATOCRIT 45.4 % (35.4-49); HEMOGLOBIN 15.3 GM/dL (11.7-16.9); LYMPH % 27.9 % (8-40); MCH 28.1 pg (25.7-33.7); MCHC 33.7 g/dl (32.0-35.9); MEAN CELL VOLUME 83.5 fl (80-96); MONO % 8.6 % (3.8-10.2); NEUT % 61.8 % (42.8-82.8); PLATELET COUNT 181 K/MM3 (134-434); RBC 5.44 M/mm3 (4.00-5.60); RDW 14.6 % (11.9-15.9); WHITE BLOOD COUNT 6.1 K/mm3 (4.0-10.0)
[2020-11-28 14:44] LABS: VENOUS BASE EXCESS -2.3 mmol/L (-2-2); VENOUS O2 SATURATION 82.5 % (70-80); VENOUS PCO2 39.4 mmHg (38-52); VENOUS PH 7.376 (7.310-7.410)
[2020-11-28 15:00] LABS: CHLORIDE 101 mmol/L (98-107); SODIUM 135 mmol/L (136-145)
[2020-11-28 15:03] LABS: ALBUMIN 3.8 g/dl (3.4-5.0); CALCIUM 9.5 mg/dL (8.5-10.1)
[2020-11-28 15:05] LABS: ANION GAP 9 MMOL/L (8-16); BLOOD UREA NITROGEN 15.8 mg/dL (7-18); CO2 24 mmol/L (21-32); GLUCOSE,RANDOM 400 mg/dL (74-106); LIPASE 341 U/L (73-393)
[2020-11-28] MEDS ORDERED: INSULIN REGULAR HUMAN 100 UNITS/ML *VIAL SQ ONE (15:06)
[2020-11-28 15:07] LABS: CREATININE 1.1 mg/dL (0.55-1.3); SGOT/AST 15 U/L (15-37); SGPT/ALT 44 U/L (13-61)
[2020-11-28 15:09] LABS: ALK PHOS 102 U/L (45-117); BILIRUBIN,TOTAL 0.3 mg/dL (0.2-1); TOT PROT 7.6 g/dl (6.4-8.2)
== END 2020-11-28 17:21 | disposition home or self-care (01) ==
LOC: JER 13:01
DX: R10.13 Epigastric pain (principal)
CPT/HCPCS: 36415; 71046-TC-FY; 80053; 82010; 82803; 82962; 83690; 84484; 85025; 93005; 93010; 99285-25

== ENCOUNTER 2020-12-04 16:16 | Emergency (ER) | payer OTHER ==
[2020-12-04 16:35] VITALS: BP 131/77; PULSE 89; TEMP 98.2; BMI 48.0
== END 2020-12-04 17:30 | disposition home or self-care (01) ==
LOC: JER 16:16 → JERFT 16:16
DX: L02.413 Cutaneous abscess of right upper limb (principal)
CPT/HCPCS: 99283-25